=== PATIENT | male | born 1985 | race Caucasian/White ===

== ENCOUNTER 2019-10-30 01:17 | Emergency (ER) | payer SELFPAY ==
[~2019-10-30] VITALS: Ht 170.2 cm; Wt 71.2 kg
--- NOTE | 2019-10-30 01:32 | NUR ---
Dr. Roth at bedside for MSE.
[2019-10-30] MEDS ORDERED: ONDANSETRON ODT 4 MG TAB.RAPDIS ONE (02:24)
[2019-10-30] MEDS ORDERED: HYDROCODONE/APAP 5-325MG TABLET ONE (02:24)
--- NOTE | 2019-10-30 02:29 | NUR ---
Pt cleared for DC, initially refusing pain medications but before leaving, patient changed mind and requested for pain meds. Given, tolerated well. Pt assisted out of building, standby assist by RN to friend who will be driving him home. Side effects of pain medications and importance of fall precautions emphasized to patinet. Pt written and verbal after care instructions given. Patient verbalizes understanding of instructions. Patient discharged to home in stable condition, ambulated out of Er in steady gait.
[2019-10-30] MEDS ORDERED: HYDROCODONE/APAP 5-325MG TABLET PO ONE (02:30)
[2019-10-30] MEDS ORDERED: ONDANSETRON ODT 4 MG TAB.RAPDIS SL ONE (02:30)
[2019-10-30 02:31] VITALS: BP 139/60
== END 2019-10-30 02:29 | disposition home or self-care (01) ==
LOC: ER 01:20
DX: S42.032A Displaced fracture of lateral end of left clavicle, initial encounter for closed fracture (principal); W01.0XXA Fall on same level from slipping, tripping and stumbling without subsequent striking against object, initial encounter; Y92.89 Other specified places as the place of occurrence of the external cause
CPT/HCPCS: 73000; A4663; Q0162

== ENCOUNTER 2019-11-05 01:37 | Emergency (ER) | payer SELFPAY ==
[~2019-11-05] VITALS: Ht 172.7 cm; Wt 71.7 kg
[2019-11-05] MEDS ORDERED: HYDR-4384 PO (01:53)
[2019-11-05] MEDS ORDERED: ONDA4TAB5 PO (01:53)
[2019-11-05] MEDS ORDERED: IBUPROFEN 600 MG TABLET PO ONE (02:15)
[2019-11-05] MEDS ORDERED: IBUPROFEN 600 MG TABLET ONE (02:15)
[2019-11-05] MEDS ORDERED: ONDANSETRON ODT 4 MG TAB.RAPDIS ONE (02:15)
[2019-11-05] MEDS ORDERED: HYDROCODONE/APAP 5-325MG TABLET PO ONE (02:15)
[2019-11-05] MEDS ORDERED: HYDROCODONE/APAP 5-325MG TABLET ONE (02:15)
[2019-11-05] MEDS ORDERED: ONDANSETRON ODT 4 MG TAB.RAPDIS SL ONE (02:15)
--- NOTE | 2019-11-05 02:28 | NUR ---
Patient discharged to home in stable condition with friend driving patient home. Written and verbal after care instructions given. Patient verbalizes understanding of instructions. Stressed follow up or return to ER for worsening s/s.
[2019-11-05 02:29] VITALS: BP 130/75
== END 2019-11-05 02:29 | disposition home or self-care (01) ==
LOC: ER 01:43
DX: S42.002D Fracture of unspecified part of left clavicle, subsequent encounter for fracture with routine healing (principal); X58.XXXD Exposure to other specified factors, subsequent encounter; Z76.0 Encounter for issue of repeat prescription
CPT/HCPCS: A4663; Q0162